=== PATIENT | female | born 1955 | race Caucasian/White ===

== ENCOUNTER 2020-09-15 11:03 | Outpatient (CLI) | payer BC, MEDICARE | END 2020-09-15 11:04 | disposition home or self-care (01) | LOC: BICMAMMO 11:03 | PROVIDERS: ATTEND Clinical Nurse Specialist Medical-Surgical | DX: Z12.31 Encounter for screening mammogram for malignant neoplasm of breast (principal) | CPT/HCPCS: 77063; 77067 ==

== ENCOUNTER 2020-11-29 09:40 | Outpatient (CLI) | payer MEDICARE | END 2020-11-29 09:41 | disposition home or self-care (01) | LOC: BICRAD 09:40 | PROVIDERS: ATTEND Internal Medicine Critical Care Medicine | DX: R06.00 Dyspnea, unspecified (principal) | CPT/HCPCS: 71046 ==

== ENCOUNTER 2021-07-29 12:56 | Outpatient (CLI) | payer MEDICARE | END 2021-07-29 12:57 | disposition home or self-care (01) | LOC: ULT 12:56 | PROVIDERS: ATTEND Family Medicine | DX: R06.02 Shortness of breath (principal); R60.0 Localized edema; E66.01 Morbid (severe) obesity due to excess calories; I08.1 Rheumatic disorders of both mitral and tricuspid valves | CPT/HCPCS: 93306 ==

== ENCOUNTER 2023-10-18 09:18 | Day surgery (SDC) | payer MEDICARE ==
[2023-10-16 10:51] VITALS: BMI 44.8
[2023-10-18] MEDS ORDERED: fentaNYL PF 100 MCG/2 ML SYRINGE ONE (10:15)
[2023-10-18] MEDS ORDERED: PROPOFOL 20 ML ONE (10:15)
[2023-10-18] MEDS ORDERED: Rocuronium Bromide 10 MG/ML (10ML VIAL) ONE ×2 (10:16→14:21)
[2023-10-18] MEDS ORDERED: Lidocaine 1% (PF) 30 ML VIAL ONE (10:49)
[2023-10-18] MEDS ORDERED: EPINEPHrine 1 MG/ML VIAL ONE (10:49)
[2023-10-18 11:29] LABS: Hematocrit 37.8 % (36.0-47.0); Hemoglobin 12.6 g/dL (12.0-16.0)
[2023-10-18] MEDS ORDERED: SUGAMMADEX SODIUM 200 MG/2 ML VIAL ONE (12:03)
[2023-10-18] MEDS ORDERED: Dexamethasone 20 MG/5 ML VIAL ONE (12:19)
[2023-10-18] MEDS ORDERED: fentaNYL 50 mcg/mL 1 mL Vial ONE (12:34)
[2023-10-18] MEDS ORDERED: Ondansetron PF 4 MG/2 ML Vial ONE (14:21)
[2023-10-18] MEDS ORDERED: Hydrocodone-Acetamin 15 ML UDCUP ONE (14:46)
[2023-10-24 14:18] LABS: Fungus Stain Final report (.)
== END 2023-10-18 15:20 | disposition home or self-care (01) ==
LOC: SDC 09:18
PROVIDERS: ATTEND Specialist
PROC: 0CBV8ZX Excision of Left Vocal Cord, Via Natural or Artificial Opening Endoscopic, Diagnostic (ICD-10-PCS; principal; 2023-10-18)
PROC: 0CBT8ZX Excision of Right Vocal Cord, Via Natural or Artificial Opening Endoscopic, Diagnostic (ICD-10-PCS; 2023-10-18)
DX: J38.3 Other diseases of vocal cords (principal); J32.9 Chronic sinusitis, unspecified; I10 Essential (primary) hypertension; J45.909 Unspecified asthma, uncomplicated; E03.9 Hypothyroidism, unspecified; Z79.890 Hormone replacement therapy; Z79.899 Other long term (current) drug therapy; Z98.890 Other specified postprocedural states; Z87.891 Personal history of nicotine dependence
CPT/HCPCS: 31535; 85014; 85018; 87070; 87075; 87102; 87205; 87206; 93005; J0171; J2001; J2405; J2704; J3010; 87076; 88305; 93010; J1100

== ENCOUNTER 2023-10-29 09:14 | Outpatient (CLI) | payer MEDICARE ==
[2023-10-29 10:07] LABS: #Basophils 0.01 10x3/uL (0.0-0.2); #Monocytes 0.64 10x3/uL (0.0-1.1); #Neutrophils 3.51 10x3/uL (1.5-8.4); %Basophils 0.2 % (0.0-2.0); %Eosinophils 1.7 % (0.0-6.0); %Lymphocytes 27.5 % (18.0-47.0); %Monocytes 10.9 % (0.0-10.0); %Neutrophils 59.5 % (40.0-75.0); Hematocrit 37.1 % (34.9-44.5); Hemoglobin 12.5 g/dL (12.0-15.5); Mean Corpuscular HGB CONC 33.7 g/dL (32.0-36.0); Mean Corpuscular Hemoglobin 31.6 pg (27.0-33.0); Mean Corpuscular Volume 93.9 fL (81.6-98.3); Mean Platelet Volume 10.9 fL (7.4-10.4); Platelet Count 220 10x3/uL (150-450); RBC Distribution Width 14.1 % (11.5-14.5); Red Blood Cell (RBC) Count 3.95 10x6/uL (3.90-5.03); White Blood Cell (WBC) Count 5.9 10x3/uL (3.5-10.5)
[2023-10-29 10:26] LABS: Prothrombin Time 10.4 sec (9.5-12.1)
[2023-10-29 10:31] LABS: Anion Gap 12 mmol/L (10-20); BUN (Urea Nitrogen) 15 mg/dL (9.8-20.1); Calc. Creatinine Clearance 0 mL/min (70-130); Calcium 9.8 mg/dL (7.8-10.44); Carbon Dioxide 26 mmol/L (23-31); Chloride 107 mmol/L (98-107); Estimated GFR 79; Glucose 105 mg/dL (80-115); Potassium 3.9 mmol/L (3.5-5.1); Sodium 141 mmol/L (136-145)
== END 2023-10-29 09:15 | disposition home or self-care (01) ==
LOC: LABBT 09:14
PROVIDERS: ATTEND Orthopaedic Surgery
DX: Z01.818 Encounter for other preprocedural examination (principal); M17.11 Unilateral primary osteoarthritis, right knee
CPT/HCPCS: 80048; 85025; 85610; 87081; 93005; 93010

== ENCOUNTER 2023-12-10 12:01 | Outpatient (CLI) | payer MEDICARE | END 2023-12-10 12:02 | disposition home or self-care (01) | LOC: SCSRAD 12:01 | PROVIDERS: ATTEND Family Medicine | DX: J44.1 Chronic obstructive pulmonary disease with (acute) exacerbation (principal) | CPT/HCPCS: 71046 ==

== ENCOUNTER 2023-12-31 13:44 | Outpatient (CLI) | payer MEDICARE | END 2023-12-31 13:45 | disposition home or self-care (01) | LOC: BICCT 13:44 | PROVIDERS: ATTEND Family Medicine | DX: J44.1 Chronic obstructive pulmonary disease with (acute) exacerbation (principal); I28.9 Disease of pulmonary vessels, unspecified | CPT/HCPCS: 71250 ==